=== PATIENT | female | born 1965 | race Caucasian/White ===

== ENCOUNTER 2022-05-13 13:23 | Inpatient (IN) | payer SELFPAY ==
[~2022-05-13 13:23] MED LIST: Iopamidol 370 76% 125 ML VIAL FS ONE; Sodium Chloride 0.9% 1,000 ML BAG ONE; Sodium Chloride 0.9% 100 ML BAG ONE
[2022-05-13] MEDS ORDERED: Ketorolac Tromethamine 30 MG/ML VIAL ONE (14:16)
[2022-05-13] MEDS ORDERED: Sodium Chloride 0.9% 1,000 ML ONE (14:16)
[2022-05-13 14:35] LABS: INR-International Normal Ratio 1.1; Prothrombin Time 14.2 sec (12.0-14.7)
[2022-05-13 14:36] LABS: PTT 34.8 sec (22.9-36.1)
[2022-05-13 14:38] LABS: D-Dimer Test 1.64 *mcg/mL (0.27-0.43)
[2022-05-13 14:41] LABS: ALT (SGPT) 15 U/L (8-55); AST (SGOT) 13 U/L (5-34); Albumin 3.4 g/dL (3.5-5.0); Alkaline Phosphatase 123 U/L (40-110); Anion Gap 16 mmol/L (10-20); BUN (Urea Nitrogen) 28 mg/dL (9.8-20.1); Bilirubin, Total 0.9 mg/dL (0.2-1.2); Calc. Creatinine Clearance 0 mL/min (70-130); Calcium 8.6 mg/dL (7.8-10.44); Carbon Dioxide 24 mmol/L (22-29); Chloride 93 mmol/L (98-107); Estimated GFR 101; Globulin 3.3 g/dL (2.4-3.5); Glucose 96 mg/dL (70-105); Lipase 4 U/L (8-78); Potassium 4.1 mmol/L (3.5-5.1); Protein, Total 6.7 g/dL (6.0-8.3)
[2022-05-13 14:42] LABS: Acetaminophen Less than 10.0 mcg/mL (10.0-30.0); Alcohol Less than 10 mg/dL (Less than 10); CK (CPK) 16 U/L (29-168); Magnesium 2.3 mg/dL (1.6-2.6); Salicylate Less than 8.0 mg/dL (15.0-30.0)
[2022-05-13 15:09] LABS: Hemoglobin 13.5 g/dL (12.0-16.0); Mean Corpuscular HGB CONC 33.2 g/dL (32.0-36.0); Mean Corpuscular Hemoglobin 30.7 pg (27.0-31.0); Mean Corpuscular Volume 92.7 fL (78.0-98.0); Mean Platelet Volume 6.8 fL (7.4-10.4); Platelet Count 466 thou/uL (130-400); RBC Distribution Width 11.8 % (11.5-14.5); Red Blood Cell (RBC) Count 4.39 mill/uL (4.20-5.40); White Blood Cell (WBC) Count 20.1 thou/uL (4.8-10.8)
[2022-05-13 15:10] LABS: Band 1 % (5-11); Lymphocytes 2 % (21-51); MDiff Complete? YES; Manual Diff?? YES; Metamyelocyte 1 % (0-0); Monocytes 4 % (0-10); Neutrophil 91 % (42-75); Platelet Morphology Comment Appears Increased; RBC Morphology Normal; Reactive Lymphocytes 1 % (0-10)
[2022-05-13 15:11] LABS: Sodium 129 mmol/L (136-145)
[2022-05-13] MEDS ORDERED: Levofloxacin 500 mg/D5W 100 ml Premix Bag ONE (15:39)
[2022-05-13] MEDS ORDERED: Morphine 2 MG/ML VIAL ONE (17:23)
[2022-05-13 17:36] LABS: SARS-CoV-2 NAA Rapid Test Not Detected (NotDetected)
[2022-05-13] MEDS ORDERED: Zolpidem Tartrate 5 MG TAB PO PRN (21:29)
[2022-05-13] MEDS ORDERED: Senokot S 8.6-50 MG TAB PO PRN (21:29)
[2022-05-13] MEDS ORDERED: Ondansetron ODT 4 MG TAB PO PRN (21:29)
[2022-05-13] MEDS: Acetaminophen 325 MG TAB PO PRN (22:23)
[2022-05-13] MEDS: Nicotine 7 MG PATCH TD SCH (22:25)
[2022-05-14 05:32] LABS: Band 11 % (5-11); Lymphocytes 8 % (21-51); MDiff Complete? YES; Mean Corpuscular Hemoglobin 30.9 pg (27.0-31.0); Mean Platelet Volume 7.2 fL (7.4-10.4); Monocytes 2 % (0-10); Neutrophil 79 % (42-75); Platelet Count 424 thou/uL (130-400); RBC Distribution Width 11.7 % (11.5-14.5); Red Blood Cell (RBC) Count 3.89 mill/uL (4.20-5.40)
[2022-05-14 05:33] LABS: Anion Gap 12 mmol/L (10-20); BUN (Urea Nitrogen) 20 mg/dL (9.8-20.1); Calc. Creatinine Clearance 0 mL/min (70-130); Calcium 7.8 mg/dL (7.8-10.44); Carbon Dioxide 21 mmol/L (22-29); Chloride 101 mmol/L (98-107); Estimated GFR 106; Glucose 119 mg/dL (70-105); Sodium 130 mmol/L (136-145)
[2022-05-14] MEDS: Famotidine 20 MG TAB PO SCH ×2 (09:10→20:37)
[2022-05-14] MEDS: Acetaminophen 325 MG TAB PO PRN ×3 (12:06→20:57)
[2022-05-14] MEDS: Guaifenesin DM 100-10/5 ML UDCUP PO PRN ×2 (12:54→20:37)
[2022-05-14] MEDS: Nicotine 7 MG PATCH TD SCH (20:37)
[2022-05-14 21:12] VITALS: BMI 14.0
[2022-05-15] MEDS: Acetaminophen 325 MG TAB PO PRN ×2 (05:45→08:45)
[2022-05-15] MEDS: Famotidine 20 MG TAB PO SCH (08:06)
[2022-05-15 10:42] LABS: #Lymphocytes 1.4 thou/uL (1.20-3.40); #Monocytes 0.9 thou/uL (0.11-0.59); #Neutrophils 11.8 thou/uL (1.40-6.50); %Basophils 0.3 % (0.0-1.0); %Eosinophils 0.3 % (0.0-10.0); %Lymphocytes 9.9 % (21.0-51.0); %Monocytes 6.4 % (0.0-10.0); %Neutrophils 83.1 % (42.0-75.0); Mean Corpuscular HGB CONC 32.4 g/dL (32.0-36.0); Mean Corpuscular Hemoglobin 30.4 pg (27.0-31.0); Mean Corpuscular Volume 93.8 fl (78.0-98.0); Mean Platelet Volume 6.4 fL (7.4-10.4); Platelet Count 547 thou/uL (130-400); RBC Distribution Width 12.5 % (11.5-14.5); Red Blood Cell (RBC) Count 3.63 mill/uL (4.20-5.40); White Blood Cell (WBC) Count 14.2 thou/uL (4.8-10.8)
[2022-05-15 11:16] LABS: Anion Gap 12 mmol/L (10-20); BUN (Urea Nitrogen) 13 mg/dL (9.8-20.1); Calc. Creatinine Clearance 73 mL/min (70-130); Calcium 8.1 mg/dL (7.8-10.44); Carbon Dioxide 27 mmol/L (22-29); Chloride 101 mmol/L (98-107); Estimated GFR 108; Glucose 118 mg/dL (70-105); Potassium 4.1 mmol/L (3.5-5.1); Sodium 136 mmol/L (136-145)
[2022-05-15 16:28] VITALS: BP 103/69; TEMP 98.4
== END 2022-05-15 18:20 | disposition home or self-care (01) | DRG 871 ==
LOC: MADERS 13:23 → MADMS 18:54
PROVIDERS: ADMIT Family Medicine; ATTEND Family Medicine
DX: A41.9 Sepsis, unspecified organism (principal); J18.9 Pneumonia, unspecified organism; E87.1 Hypo-osmolality and hyponatremia; E86.0 Dehydration; Z79.899 Other long term (current) drug therapy; Z88.5 Allergy status to narcotic agent; Z20.822 Contact with and (suspected) exposure to COVID-19; F17.210 Nicotine dependence, cigarettes, uncomplicated; Z71.6 Tobacco abuse counseling
CPT/HCPCS: 36415; 70450; 71045; 71275; 74177; 80048; 80053; 80307; 82550; 83605; 83690; 83735; 84484; 85025; 85379; 85610; 85730; 86140; 87040; 87804; 93005; 96361; 96365; 96375; J1885; J1956; J2270; J7050; J7620; Q9967; U0002